=== PATIENT | female | born 1960 | race Caucasian/White ===

== ENCOUNTER → 2024-02-21 | Outpatient (CLI) | payer BC | LOC: COL.VAS 09:06 | DX: R01.1 Cardiac murmur, unspecified (principal) ==

== ENCOUNTER → 2024-05-01 | Outpatient (CLI) | payer BC | LOC: COL.RAD 12:43 | DX: D25.9 Leiomyoma of uterus, unspecified (principal); N83.209 Unspecified ovarian cyst, unspecified side ==

== ENCOUNTER → 2024-08-18 | Outpatient (CLI) | payer BC | LOC: COL.RAD 14:33 | DX: N83.202 Unspecified ovarian cyst, left side (principal) ==